=== PATIENT | female | born 1975 | race Caucasian/White ===

== ENCOUNTER 2023-03-16 11:08 | Outpatient (CLI) | payer OTHER, SELFPAY ==
--- NOTE | 2023-03-16 11:30 | CRLHL7_ITS ---
For Patients: As a result of the Century Cures Act, medical imaging exams and procedure reports are released immediately into your electronic medical record. You may view this report before your referring provider. If you have questions, please contact your health care provider. BILATERAL SCREENING MAMMOGRAM WITH COMPUTER-AIDED DETECTION AND TOMOSYNTHESIS TECHNIQUE: CC and MLO views were obtained. These mammographic images have been obtained using full-field digital technique. These mammographic images were interpreted with the benefit of computer-aided detection. Breast Tomosynthesis was used in this interpretation. COMPARISON FILM: 11/20/21, 07/10/20, 05/23/19. FINDINGS: The breasts are extremely dense, which lowers the sensitivity of mammography IMPRESSION: There is no radiographic evidence for malignancy. ASSESSMENT: BI-RADS Category 1: Negative RECOMMENDATION: Routine screening mammogram in 1 year. A lay language report of this examination will be provided to the patient. Mg Fajardo M.D. Diagnostic Radiologist [email or web address] FREDERICK/Dictated by: Mg Fajardo MD @ 03/16/2023 12:20:00 PM (Electronically Signed)
== END 2023-03-16 11:09 | disposition home or self-care (01) ==
LOC: MAMMO 11:09
PROVIDERS: Visit Provider Physician Assistant
DX: Z12.31 Encounter for screening mammogram for malignant neoplasm of breast (principal); R92.2 Inconclusive mammogram
CPT/HCPCS: 77063; 77067

== ENCOUNTER 2024-05-29 09:27 | Outpatient (CLI) | payer OTHER, SELFPAY | END 2024-05-29 09:28 | disposition home or self-care (01) | LOC: NFLDREF 05-31 10:32 | PROVIDERS: Visit Provider Physician Assistant | DX: Z13.6 Encounter for screening for cardiovascular disorders (principal); Z13.1 Encounter for screening for diabetes mellitus; Z13.29 Encounter for screening for other suspected endocrine disorder | CPT/HCPCS: 80061; 82947; 84443 ==

== ENCOUNTER 2024-11-15 15:36 | Outpatient (CLI) | payer OTHER, SELFPAY | END 2024-11-15 15:37 | disposition home or self-care (01) | LOC: MAMMO 15:36 | PROVIDERS: Visit Provider Physician Assistant | DX: Z12.31 Encounter for screening mammogram for malignant neoplasm of breast (principal); R92.343 Mammographic extreme density, bilateral breasts | CPT/HCPCS: 77063; 77067 ==

== ENCOUNTER 2025-07-12 07:09 | Outpatient (CLI) | payer OTHER, SELFPAY ==
--- NOTE | 2025-07-12 08:47 | P.ANES_ITS ---
Anesthesia Charges Start Date/Time Anesthesia Start Date: 07/12/25 Anesthesia Start Time: 08:15 Stop Date/Time Anesthesia Stop Date: 07/12/25 Anesthesia Stop Time: 08:45 Coding CPT Codes CPT Codes: JYOTHI LWR INTST NDSC NOS - [id number] ([id number]) P2 - PATIENT W/MILD SYST DISEASE, QK - BUSINESS UNIT DIRECTOR 2-4 CNCRNT ANES PROC, QX - SNACK BAR ATTENDANT SVC W/ MD MED DIRECTION
--- NOTE | 2025-07-12 08:47 | W.ANESCHARGE ---
Anesthesia Charges Start Date/Time Anesthesia Start Date: 07/12/25 Anesthesia Start Time: 08:15 Stop Date/Time Anesthesia Stop Date: 07/12/25 Anesthesia Stop Time: 08:45 Coding CPT Codes CPT Codes: JYOTHI LWR INTST NDSC NOS - [id number] ([id number]) P2 - PATIENT W/MILD SYST DISEASE, QK - ENTERPRISE ENGINEER 2-4 CNCRNT ANES PROC, QX - ASSISTANT PROFESSOR OF FORESTRY SVC W/ MD MED DIRECTION
--- NOTE | 2025-07-12 08:49 | P.ANES_ITS ---
Anesthesia Charges Start Date/Time Anesthesia Start Date: 07/12/25 Anesthesia Start Time: 08:15 Stop Date/Time Anesthesia Stop Date: 07/12/25 Anesthesia Stop Time: 08:45 Coding CPT Codes CPT Codes: JYOTHI LWR INTST NDSC NOS - [id number] ([id number]) P2 - PATIENT W/MILD SYST DISEASE, QK - CEMENT PATCHER 2-4 CNCRNT ANES PROC, QX - BUSINESS APPLICATIONS ANALYST SVC W/ MD MED DIRECTION
--- NOTE | 2025-07-12 08:49 | W.ANESCHARGE ---
Anesthesia Charges Start Date/Time Anesthesia Start Date: 07/12/25 Anesthesia Start Time: 08:15 Stop Date/Time Anesthesia Stop Date: 07/12/25 Anesthesia Stop Time: 08:45 Coding CPT Codes CPT Codes: JYOTHI LWR INTST NDSC NOS - [id number] ([id number]) P2 - PATIENT W/MILD SYST DISEASE, QK - MEMBERSHIP SOLICITOR 2-4 CNCRNT ANES PROC, QX - MATERIALS ASSISTANT SVC W/ MD MED DIRECTION
== END 2025-07-12 07:10 | disposition home or self-care (01) ==
LOC: OP CLINIC 07:09
PROVIDERS: Visit Provider Surgery
DX: Z12.11 Encounter for screening for malignant neoplasm of colon (principal); Z83.719 Family history of colon polyps, unspecified; D12.0 Benign neoplasm of cecum; D12.8 Benign neoplasm of rectum
CPT/HCPCS: 00811; 00812; 45385; 88305; J2704